=== PATIENT | female | born 1960 | race Caucasian/White ===

== ENCOUNTER → 2018-04-20 | Outpatient (CLI) | payer OTHER ==
[~2018-04-20] MED LIST: AZEL205.2 NAS; DIAZ2TAB3 PO; ERGO500017 PO; ESOM40CA PO; ESTR0.5T PO; FLUT9.9S NS; METF500T17 PO; MUPI22OI2 NAS; [UNRECOGNIZED DRUG - OTHER]
== END | disposition home or self-care (01) ==
LOC: STAR 12:11
PROVIDERS: ATTEND Orthopaedic Surgery
DX: Z01.818 Encounter for other preprocedural examination (principal); M17.12 Unilateral primary osteoarthritis, left knee
CPT/HCPCS: 93005

== ENCOUNTER 2018-04-23 09:55 | Day surgery (SDC) | payer OTHER ==
[2018-04-20 12:40] VITALS: BP 125/80
[~2018-04-23] VITALS: Ht 165.1 cm; Wt 89.7 kg
[2018-04-23] MEDS ORDERED: LACTATED RINGERS 1,000 ML IV SCH (10:47)
[2018-04-23] MEDS ORDERED: MIDAZOLAM 1 MG/ML, 2ML ONE (11:45)
[2018-04-23] MEDS ORDERED: FENTANYL PF 250 MCG/5ML ONE (11:45)
[2018-04-23] MEDS ORDERED: BUPIVACAINE/PF 0.5% ONE (12:13)
[2018-04-23] MEDS ORDERED: EPINEPHRINE 1 MG/ML, 1ML ONE (12:13)
[2018-04-23] MEDS ORDERED: SCOPOLAMINE PATCH, 1.5MG PATCH.TD72 TD ONE (12:15)
[2018-04-23] MEDS ORDERED: GABAPENTIN 300 MG CAPSULE ONE (12:15)
[2018-04-23] MEDS ORDERED: ACETAMINOPHEN 500 MG TABLET ONE (12:15)
[2018-04-23] MEDS ORDERED: PROPOFOL 10 MG/ML, 20ML ONE (12:31)
[2018-04-23] MEDS ORDERED: PROPOFOL 10 MG/ML, 50ML ONE (12:31)
[2018-04-23] MEDS ORDERED: DEXAMETHASONE 4 MG/ML, 1ML ONE (12:31)
[2018-04-23] MEDS ORDERED: ONDANSETRON 2MG/ML, 2ML ONE (12:31)
[2018-04-23] MEDS ORDERED: CEFAZOLIN 1,000 MG ONE (12:31)
[2018-04-23] MEDS ORDERED: HALOPERIDOL 5 MG/ML IV PRN (13:30)
[2018-04-23] MEDS ORDERED: ALBUTEROL SULFATE 2.5 MG/3 ML NPPB PRN (13:30)
[2018-04-23] MEDS ORDERED: HYDROmorphone 2 MG/ML, 1ML IVPush PRN (13:30)
[2018-04-23] MEDS ORDERED: OXYcodone 5 MG/5 ML ORAL.SOL UDC PO PRN (13:30)
[2018-04-23] MEDS ORDERED: PROMETHAZINE 25 MG/ML, 1ML IV PRN (13:30)
[2018-04-23] MEDS ORDERED: hydrALAzine 20 MG/ML, 1ML IV PRN (13:30)
[2018-04-23] MEDS ORDERED: LABETALOL 5MG/ML, 20ML IV PRN (13:30)
[2018-04-23] MEDS: FENTANYL PF 100 MCG/2ML IV PRN ×2 (13:40→13:50)
[2018-04-23] MEDS ORDERED: OXYcodone 5 MG/5 ML ORAL.SOL UDC ONE (13:46)
[2018-04-23] MEDS ORDERED: FENTANYL PF 100 MCG/2ML ONE (13:46)
[2018-04-23] MEDS ORDERED: HYDROmorphone 2 MG/ML, 1ML ONE (14:01)
[2018-04-23] MEDS ORDERED: MEPERIDINE/PF 25MG/0.5ML IVPush PRN (14:30)
== END 2018-04-23 15:45 | disposition home or self-care (01) ==
LOC: OUT 09:55
PROVIDERS: ATTEND Orthopaedic Surgery
DX: M94.262 Chondromalacia, left knee (principal); M65.862 Other synovitis and tenosynovitis, left lower leg; K21.9 Gastro-esophageal reflux disease without esophagitis; E66.9 Obesity, unspecified; E11.9 Type 2 diabetes mellitus without complications; Z68.32 Body mass index [BMI] 32.0-32.9, adult; Z88.0 Allergy status to penicillin; Z88.8 Allergy status to other drugs, medicaments and biological substances; Z91.040 Latex allergy status; Z79.01 Long term (current) use of anticoagulants; Z79.84 Long term (current) use of oral hypoglycemic drugs; Z90.710 Acquired absence of both cervix and uterus; Z98.890 Other specified postprocedural states; Z87.891 Personal history of nicotine dependence; Z72.89 Other problems related to lifestyle
CPT/HCPCS: 29873; 29876; 82962; J0690; J1100; J2175; J2250; J2405; J2704; J3010; J3490; J7120; J0171